=== PATIENT | male | born 1985 | race Caucasian/White ===

== ENCOUNTER 2016-11-24 04:33 | Emergency (ER) | payer MEDICAID ==
[~2016-11-24] VITALS: Ht 167.6 cm; Wt 127.0 kg
[2016-11-24 04:33] VITALS: BP_SYST 133
[2016-11-24] MEDS ORDERED: DIPH-TET-PERTUS Vaccine 0.5 ML VIAL (ADACEL) I.M. ONE (04:45)
[2016-11-24] MEDS ORDERED: CEFAZOLIN 1 GM IVPB PREMIX 50 ML IV ONE (04:45)
[2016-11-24] MEDS ORDERED: LORazepam 2 MG/ML VIAL (FOR ER USE) IVP ONE (04:45)
[2016-11-24] MEDS ORDERED: MORPHINE 4 MG/ML INJ. SYRINGE IVP ONE ×2 (04:45→12:00)
[2016-11-24] MEDS ORDERED: ONDANSETRON HCL 4 MG/2 ML VIAL IVP ONE (04:45)
[2016-11-24] MEDS ORDERED: KETAMINE HCL 500 MG/10 ML VIAL IVP ONE ×2 (04:45→05:00)
[2016-11-24 05:28] LABS: BASOPHILS # (AUTO) 0.1 K/uL (0.0-0.2); BASOPHILS % (AUTO) 1.4 % (0.0-2.0); EOSINOPHILS # (AUTO) 0.1 K/uL (0.0-0.4); EOSINOPHILS % (AUTO) 1.1 % (0.0-4.0); HEMATOCRIT 44.2 % (36-54); HEMOGLOBIN 14.6 g/dL (14.0-18.0); LYMPHOCYTES # (AUTO) 2.3 K/uL (1.0-5.5); LYMPHOCYTES % (AUTO) 27.5 % (20.5-51.5); MEAN CORPUSCULAR HEMOGLOBIN 31 pg (27-31); MEAN CORPUSCULAR HGB CONC 33 % (32-36); MEAN CORPUSCULAR VOLUME 92 fL (79.0-98.0); MONOCYTES # (AUTO) 0.5 K/uL (0.0-1.0); MONOCYTES % (AUTO) 6.4 % (1.7-9.3); NEUTROPHILS # (AUTO) 5.5 K/uL (1.8-7.7); NEUTROPHILS % (AUTO) 63.6 % (40.0-70.0); PLATELET COUNT (AUTO) 293 K/uL (130-430); RED BLOOD CELL COUNT(AUTO) 4.78 MIL/uL (4.2-6.2); RED CELL DISTRIBUTION WIDTH 12.9 % (9.0-15.0); WHITE BLOOD COUNT (AUTO) 8.5 K/uL (4.8-10.8)
[2016-11-24 05:33] LABS: CALCIUM 8.5 mg/dL (8.4-11.0); CREATININE 0.94 mg/dL (0.55-1.30); POTASSIUM 3.8 mmol/L (3.5-5.1)
[2016-11-24 05:38] LABS: ALBUMIN 4.1 g/dL (3.4-4.8); INR 0.9 (0.80-1.20); PROTHROMBIN TIME 9.9 SECS (9.5-12.5); TOTAL BILIRUBIN 0.4 mg/dL (0.0-1.0)
[2016-11-24] MEDS ORDERED: NACL 0.9% 1,000 ML IV ONE (05:45)
[2016-11-24 12:00] VITALS: BP_SYST 115
== END 2016-11-24 12:00 | disposition home or self-care (01) ==
LOC: SED 04:33
DX: S93.04XA Dislocation of right ankle joint, initial encounter (principal); V89.2XXA Person injured in unspecified motor-vehicle accident, traffic, initial encounter; Y93.89 Activity, other specified; Y92.488 Other paved roadways as the place of occurrence of the external cause; Y99.8 Other external cause status
CPT/HCPCS: 27840; 36415; 73600; 80053; 85025; 85610; 90715; 99152; 99285; G0482; J0690; J2060; J2270; J2405; 99284

== ENCOUNTER 2016-11-27 14:05 | Emergency (ER) | payer MEDICAID ==
[~2016-11-27] VITALS: Ht 170.2 cm; Wt 120.2 kg
[2016-11-27 14:09] VITALS: BP 152/76; PULSE 100; RESP 20; TEMP 97.4; O2SAT 98
--- NOTE | 2016-11-27 16:10 | NUR ---
Patient to [facility] for evaluation. Side rails up. Report given to MIKAELA Al.
--- NOTE | 2016-11-27 16:17 | NUR ---
DAPHNE Torres RN in [facility] examining patient
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
[2016-11-27] MEDS ORDERED: KETOROLAC TROMETHAMINE 60 MG/2 ML VIAL IM ONE (16:30)
[2016-11-27] MEDS ORDERED: BACITRACIN 1 GM OINT TP ONE (16:45)
[2016-11-27 17:06] VITALS: BP 152/76; PULSE 98; RESP 18; TEMP 97.4; O2SAT 98
--- NOTE | 2016-11-27 17:06 | NUR ---
Patient given written and verbal discharge instructions and verbalizes understanding. ER [employer] MIKAELA BECKETT discussed with patient the results and treatment provided. Patient in stable condition. ID arm band removed. Rx of MOTRIN 800 AND TRAMADOL given. Patient educated on pain management and to follow up with PMD. Pain Scale 2/10. Opportunity for questions provided and answered.
== END 2016-11-27 17:06 | disposition home or self-care (01) ==
LOC: SED 14:05
DX: M79.661 Pain in right lower leg (principal); F17.200 Nicotine dependence, unspecified, uncomplicated
CPT/HCPCS: 96372; 99283; J1885